=== PATIENT | female | born 1990 | race Caucasian/White ===

== ENCOUNTER 2016-05-19 15:32 | Outpatient (CLI) | payer OTHER ==
[~2016-05-19] VITALS: Ht 165.1 cm; Wt 95.0 kg
[~2016-05-19 15:32] MED LIST: PRENTAB9 PO
[2016-05-19 15:50] VITALS: BP 126/83
[2016-05-19] MEDS ORDERED: FLUCONAZOLE 50MG TABLET PO ONE (16:45)
[2016-05-19 17:27] VITALS: BP 136/81
--- NOTE | 2016-05-19 18:55 | IPNPDOC ---
Obstetrical Progress Note Date of Service The patient was seen on 05/19/16 at 18:27. Progress Note PROGRESS NOTE AND DISCHARGE SUBJECTIVE: Kelly is a 25-year-old female who is a at 34 weeks 4 days gestation with EDC of 06/26/2016 based on her LMP and consistent with a first trimester ultrasound. She initiated care in her first trimester with [facility]. Her has been complicated by a placental abruption at 30 weeks gestation. The placental abruption is now stable patient has had no more bleeding since 31 weeks. She presented to labor and delivery the ambulation after being seen at the office. She presented to the office for routine NST that was nonreactive. Patient experiencing low dull back pain and contractions. Reports active movement. Denies leaking of fluid or vaginal bleeding. Patient reports drinking plenty of fluid. Reports only eating a bowl of cereal today. Patient complaining of pelvic vaginal discharge and occasional vaginal itching. Allergies: No known drug allergies Current medications: vitamins Past medical history: Chickenpox OBJECTIVE: See vital signs below. heart rate baseline 130, moderate variability, positive accelerations, no decelerations. Contractions have spaced out. Contractions when patient arrived to labor and delivery were every 2-8 minutes and now are irregular and spaced out. PHYSICAL EXAMINATION: Respiratory: Lungs clear bilaterally Cardiovascular: Rate and rhythm are regular Abdomen: Gravid, mild to palpation with contraction : Thick white discharge noted at the introitus. Sterile speculum exam reveals a normal cervix. Thick adherent clumpy white discharge noted and adhered to the vaginal wall and all around the cervix. The discharge is copious. A wet prep obtained and found to have numerous yeast buds and pseudohyphae. The pH of the discharge is 4.5. Bilateral extremities: No edema present CURRENT LABS: Please see below. ASSESSMENT: IUP at 34 weeks 4 days gestation, vaginal candidiasis, category 1 heart rate tracing PLAN: Patient discharged to home with her significant other. Urine obtained for a UA and urine culture. Will call patient with culture results. Reviewed diagnosis of candidiasis/vaginal yeast infection. Diflucan by mouth given in the hospital. Patient reports that she does not feel her contractions anymore. Discharge education done on vaginal bleeding, labor signs and symptoms, kick count, and danger signs to report. She will continue her routine OB follow-up. VS, I&O, 24H, Fishbone VS, I&O, 24H, Fishbone Vital Signs Date Time Temp Pulse Resp B/P Pulse Ox O2 Delivery O2 Flow Rate FiO2 05/19/16 17:27 69 18 136/81 05/19/16 15:46 99.2 Laboratory Tests 2 05/19/16 16:44: Item Value Date Time Urine Color STRAW 05/19/16 1644 Urine Appearance CLEAR 05/19/16 1644 Urine pH 6.0 UNITS 05/19/16 1644 Urine Specific [place] 1.001 L 05/19/16 1644 Urine Protein NEGATIVE mg/dL 05/19/16 1644 Urine Glucose (UA) NEGATIVE mg/dL 05/19/16 1644 Urine Ketones NEGATIVE mg/dL 05/19/16 1644 Urine Blood NEGATIVE 05/19/16 1644 Urine Nitrite NEGATIVE 05/19/16 1644 Urine Bilirubin NEGATIVE 05/19/16 1644 Urine Urobilinogen 0.2 mg/dL 05/19/16 1644 Urine Leukocyte Esterase 3+ H 05/19/16 1644 Urine WBC (Auto) 2 /HPF 05/19/16 1644 Urine RBC (Auto) 3 /HPF 05/19/16 1644 Urine Hyaline Casts (Auto) 0 /LPF 05/19/16 1644 Urine Bacteria (Auto) 1+ H 05/19/16 1644 Urine Squamous Epithelial Cells 1 /HPF 05/19/16 1644 Microbiology 05/19/16 Urine Culture, Received Pending DAVID MCCALL CNM May 19, 2016 18:55
== END 2016-05-19 18:10 | disposition home or self-care (01) ==
LOC: M LDO 15:32
PROVIDERS: ATTEND Obstetrics & Gynecology
DX: O98.813 Other maternal infectious and parasitic diseases complicating pregnancy, third trimester (principal); Z3A.34 34 weeks gestation of pregnancy

== ENCOUNTER → 2016-05-23 | Outpatient (REF) | payer OTHER | END | disposition home or self-care (01) | LOC: M LAB REF 16:50 | PROVIDERS: ATTEND Obstetrics & Gynecology | DX: Z34.03 Encounter for supervision of normal first pregnancy, third trimester (principal); Z36 Encounter for antenatal screening of mother; Z3A.00 Weeks of gestation of pregnancy not specified ==

== ENCOUNTER 2016-06-10 07:49 | Inpatient (IN) | payer OTHER ==
[~2016-06-10] VITALS: Ht 165.1 cm; Wt 97.0 kg
[2016-06-10] VITALS (20 sets, daily range): BP systolic 113–139; BP diastolic 56–85
[2016-06-10] MEDS ORDERED: LACTATED RINGER'S 1000 ML IV STA (09:18)
[2016-06-10] MEDS ORDERED: PENICILLIN G POTASSIUM IV 5 MU in D5W MINI-BAG PLUS 100 ML IV STA (09:18)
[2016-06-10 09:56] LABS: MEAN CORPUSCULAR HGB CONC 32.6 g/dl (32.0-36.5); MEAN CORPUSCULAR VOLUME 79.7 fl (80.0-96.0); RED CELL DISTRIBUTION WIDTH 13.9 % (11.5-14.5); WHITE BLOOD COUNT 10.1 K/mm3 (4.0-10.0)
[2016-06-10] MEDS ORDERED: FENTANYL 2MCG/ML ROPIVACAINE 0.2% NACL 250 ML CADD As Ordered ONE (11:30)
--- NOTE | 2016-06-10 12:06 | HPEPDOC ---
Obstetrical History & Physical General Date of Admission Jun 10, 2016 at 09:16 History of Present Illness Patient is a 25-year-old female who is a at 37.4 weeks gestation with an of 06/26/2016 based off of her LMP and consistent with her first trimester ultrasound. She initiated care at [facility] in her first trimester, transferred care to Karon Vincent's office, and transferred back to [facility] in her third trimester. Patient's has been complicated by a placental abruption at 30 weeks gestation. She's been seen twice a week for OB care since 32 weeks' gestation for a stable placental abruption. Her last ultrasound on 05/18/2016 showed no abruption. She presents to labor and delivery with complaints of contractions every 3 minutes and spontaneous rupture of membranes. Patient reports fetus is active. Denies vaginal bleeding. Reports clear fluid and slight has rupture of membrane to be at 0830. 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 Surgical History: Denies Family History Significant Family History: No pertinent family hx, Cancer (maternal grandmother lung cancer and paternal granfather prostate cancer) Social History Social history Patient is a radiologist water filtration technician. She is with father of the baby. Marital Status: Single Psychosocial History: No pertinent psych hx * Smoker: non-smoker Alcohol: denies Drugs: denies Abuse Violence Screening Have you been hit/kicked/slapp: No Have you been sexually assault: No Imunizations Influenza Status: declined Allergies Coded Allergies: No Known Drug Allergy (Verified Allergy, Unknown, 06/10/16) Medications Miscellaneous Medications Multivitamins/ ( 27-0.8 mg) 1 Tab Tab 1 TAB PO Physical Examination Physical Examination GENERAL: Alert and oriented times three. BREAST: . ABDOMEN: Gravid and non-tender to touch. FETUS: Is vertex (VTX) by sterile vaginal examination (SVE), fetus is vertex ( VTX) by Franco. HEART RATE: Regular rate and rhythm. LUNGS: Clear to auscultation (CTA). EXTREMITIES: No edema. No clonus. Deep tendon reflexes (DTRs) + 2. Other physical findings Sterile speculum exam done. Moderate amount of clear fluid noted in the vaginal canal. Positive nitrazine. Small amount of bleeding noted with vaginal exam. Not noted with speculum exam. Vital Signs/I&O Blood pressure: 128/79, heart rate 89, respirations 18, temperature 97.7F Laboratory Data 24H LABS Laboratory Tests 2 06/10/16 09:18: Serology Scanned Report Hepatitis B Testing 06/10/16 09:43: CBC/BMP Laboratory Tests 06/10/16 09:43 Red Blood Count 4.29, Mean Corpuscular Volume 79.7 L, Mean Corpuscular Hemoglobin 26.0 L, Mean Corpuscular Hemoglobin Concent 32.6, Red Cell Distribution Width 13.9 Pertinent Laboratoy Data Blood Type: O+ RBC Antibody Screen: Negative HIV: Negative Hepatitis B: Negative Rapid Plasma Reagin: Immune Rubella: Immune Chlamydia/Gonorrhea: Negative Group B Streptococcus: Positive Quad Screen Test: Declined Anatomy Ultrasound Ultrasound Date: May 18, 2016 Placenta Location: Anterior Normal Anatomy: Yes Placenta Previa: No Estimated Weight (grams): 2308 (5lbs 1 oz, TIM 15.9) Steroid Therapy Steroid Therapy: Yes Date #1: Apr 21, 2016 Date #2: Apr 22, 2016 Reason active bleeding from placental abruption Vaginal Examination Dilation: 4 cm Effacement: Other (100%) Station: -1, 0 (0) Cervical Consistency: Soft Cervical Position: Anterior Presentation: Cephalic presentation Position: Vertex (occiput) Assessment Heart Rate (FHR): 140 Variability: Moderate Accelerations: Positive Decelerations: None Tocometer Contractions: Yes Frequency: other (1-3 minutes) Duration: other (50-90) Strength: palpated as mild Multi-drug resistant Organism: No history of MDRO Assessment/Plan Assessment IUP at 37 weeks 4 days gestation Active labor at term Spontaneous rupture of membranes History of placental abruption GBS positive Plan Patient admitted to labor and delivery. Saline lock per protocol. Labs ordered. GBS prophylaxis ordered and to be started as soon as possible. Regular diet. Out of bed as tolerated. Reviewed pain management options with patient. Plan of care reviewed with patient and family. Dr. Beaulieu present in the department with patient's admission. Anticipate cervical change. DAVID MCCALL CNM Jun 10, 2016 11:53
--- NOTE | 2016-06-10 12:23 | IPNPDOC ---
Obstetrical Progress Note Date of Service The patient was seen on 06/10/16 at 11:05. Progress Note Subjective: Patient out of bed and complaining of bright red vaginal bleeding. Objective: heart rate baseline 135, positive accelerations, no decelerations. Contractions every 1-3 minutes. Moderate amount of bright red bleeding noted. SVE: 5-6/100/0 station. Assessment: IUP at 37 weeks 4 days' gestation, Active labor, Category 1 heart rate tracing Plan: She desires epidural. Continue observation of vaginal bleeding. Anticipate cervical change and spontaneous vaginal delivery. DAVID MCCALL CNM Jun 10, 2016 12:23
[2016-06-10] MEDS ORDERED: REFRIGERATOR IV KEYS XX PRN (12:30)
[2016-06-10] MEDS ORDERED: EPIDURAL COMMENT XX SCH (12:30)
[2016-06-10] MEDS ORDERED: ePHEDrine SULFATE 25 MG/5 ML(5MG/ML) SYRINGE IV PRN (12:30)
[2016-06-10] MEDS ORDERED: NALOXONE INJ 0.4 MG/1 ML VIAL (J2310) IV PRN (12:30)
[2016-06-10] MEDS ORDERED: diphenhydrAMINE INJ 50MG/ML VIAL (J1200) IV PRN (12:30)
[2016-06-10] MEDS ORDERED: EPIDURAL/PCA KEYS XX PRN (12:30)
[2016-06-10] MEDS ORDERED: ONDANSETRON 4MG/2ML VIAL (J2405) IV PRN (12:30)
[2016-06-10] MEDS ORDERED: FENTANYL/ROPIVACAINE/NACL CADD 250 ML EPIDURAL SCH (12:30)
[2016-06-10] MEDS ORDERED: LACTATED RINGER'S 1000 ML IV PRN (12:30)
[2016-06-10] MEDS ORDERED: PENICILLIN G POTASSIUM IV 2.5 MU in D5W 100 ML IV SCH (14:00)
[2016-06-10] MEDS ORDERED: LR 1,000 ML IV SCH (14:57)
[2016-06-10] MEDS ORDERED: OXYTOCIN DRIP 30 UNITS in APPROPRIATE DILUENT 1 EA IV SCH ×2 (15:00→18:40)
[2016-06-10] MEDS ORDERED: OXYTOCIN 30 UNITS IN 0.9% NaCl 500ML IV BAG (J2590) As Ordered ONE (15:07)
--- NOTE | 2016-06-10 15:21 | IPNPDOC ---
Obstetrical Progress Note Date of Service The patient was seen on 06/10/16 at 1445. Progress Note Subjective: Patient is comfortable with epidural. Patient reports she has not experienced any more bleeding. Objective: heart rate baseline 150, moderate variability, 10 x 10 accelerations, no decelerations. Contractions 3-6 minutes. Vital signs: Blood pressure 125/62, heart rate 61. Assessment: Intrauterine at 37 weeks 4 days gestation, active labor at term, spontaneous rupture of membranes, category 1 heart rate tracing. Plan: Pitocin ordered. Dr. Beaulieu aware of plan. To space her cervical change and spontaneous vaginal delivery. DAVID MCCALL CNM Jun 10, 2016 15:21
[2016-06-10] MEDS ORDERED: METHYLERGONOVINE MALEATE 0.2 MG TAB PO PRN (18:45)
[2016-06-10] MEDS ORDERED: DOCUSATE SODIUM 100 MG CAP PO PRN (18:45)
[2016-06-10] MEDS ORDERED: DIBUCAINE 1% OINTMENT 30GM TOP PRN (18:45)
[2016-06-10] MEDS ORDERED: RHOGAM 300 MCG (1500 IU) INJ (J2790) IM SCH (18:45)
[2016-06-10] MEDS ORDERED: ANUSOL HC CREAM 30GM TOP PRN (18:45)
[2016-06-10] MEDS ORDERED: ACETAMINOPHEN 500 MG TAB PO PRN (18:45)
[2016-06-10] MEDS ORDERED: MEASLES,MUMPS,RUBELLA VACCINE INJ (MMR-II) (90707) SC SCH (18:45)
--- NOTE | 2016-06-10 18:57 | DNPDOC ---
Delivery Note Delivery Note Patient is a a 25-year-old now G 1 P 1001 at to 7.4 weeks' gestation who presented to labor and delivery in active labor and spontaneous rupture of membranes. She progressed to fully dilated at 1610. Patient pushed to a spontaneous vaginal delivery at 1650 to a living female in the OA position with restitution to ROT. Nuchal cord 1 tight and around arm. Shoulders delivered with ease and the corpus immediately followed. Baby placed on maternal abdomen active and crying. Cord clamped 2 and cut by father of the baby after pulsation ceased. Cord blood obtained. Spontaneous delivery of intact placenta with a three-vessel cord by Estrada mechanism at 1655. Placenta sent to the lab. Uterine hemostasis achieved by rapid infusion of IV Pitocin and uterine fundal massage. Perineum and vagina inspected and found to have a second-degree perineal laceration, left sulcus tear, and bilateral labial lacerations. Dr. Daily assisted in the sulcus repair. Repair was done with a 3. 0 Vicryl Rapide CT1 and a 4. Point 0 Vicryl Rapide SH. EBL 450. 's 8/9. Weight 6 lbs. 5 oz, 2866 g. 's name and decided at this time and is breast- feeding. Mom and baby are stable. Dr. Beaulieu aware of delivery. DAVID MCCALL CNM Jun 10, 2016 18:57
[2016-06-10] MEDS: IBUPROFEN 800 MG TAB PO PRN ×2 (20:52→20:54)
[2016-06-11 05:30] VITALS: BP 109/58
[2016-06-11] MEDS: PRENATAL VITAMIN TAB PO SCH (09:20)
[2016-06-11] MEDS: IBUPROFEN 800 MG TAB PO PRN ×2 (09:20→18:35)
[2016-06-11 18:35] VITALS: BP 136/84
[2016-06-12] MEDS: IBUPROFEN 800 MG TAB PO PRN ×2 (05:18→14:14)
[2016-06-12 06:05] VITALS: BP 130/77
[2016-06-12] MEDS: PRENATAL VITAMIN TAB PO SCH (09:00)
[2016-06-12] MEDS ORDERED: ACET500T37 PO (10:28)
[2016-06-12] MEDS ORDERED: MOTR200T44 PO (10:28)
[2016-06-12] MEDS ORDERED: COLA100C PO (10:29)
== END 2016-06-12 14:10 | disposition home or self-care (01) | DRG 775 ==
LOC: M LDO 07:49 → M LDI 09:16 → M OBS 20:20
PROVIDERS: ADMIT Obstetrics & Gynecology; ATTEND Obstetrics & Gynecology
PROC: 10E0XZZ Delivery of Products of Conception, External Approach (ICD-10-PCS; principal; 2016-06-10)
PROC: 0KQM0ZZ Repair Perineum Muscle, Open Approach (ICD-10-PCS; 2016-06-10)
PROC: 0HQ9XZZ Repair Perineum Skin, External Approach (ICD-10-PCS; 2016-06-10)
DX: O99.824 Streptococcus B carrier state complicating childbirth (principal); Z3A.37 37 weeks gestation of pregnancy; O70.1 Second degree perineal laceration during delivery; O69.2XX0 Labor and delivery complicated by other cord entanglement, with compression, not applicable or unspecified; O70.0 First degree perineal laceration during delivery; Z37.0 Single live birth

== ENCOUNTER → 2016-11-21 | Outpatient (REF) | payer OTHER ==
[~2016-11-21] MED LIST changes: +ACET-683 PO; +COLA100C5 PO; +MOTR200T44 PO
[2016-11-21 19:53] LABS: FREE T4 0.78 NG/DL (0.76-1.46)
== END ==
LOC: M LAB REF 16:52
PROVIDERS: ATTEND Advanced Practice Midwife
DX: Z01.419 Encounter for gynecological examination (general) (routine) without abnormal findings (principal)

== ENCOUNTER → 2018-12-05 | Outpatient (REF) | payer BC | LOC: M LAB REF 16:57 | PROVIDERS: ATTEND Advanced Practice Midwife | DX: Z34.81 Encounter for supervision of other normal pregnancy, first trimester (principal) ==

== ENCOUNTER → 2018-12-20 | Outpatient (REF) | payer BC | LOC: M LAB REF 13:56 | PROVIDERS: ATTEND Physician Assistant | DX: J02.9 Acute pharyngitis, unspecified (principal) ==

== ENCOUNTER → 2019-02-14 | Outpatient (REF) | payer BC | LOC: M LAB REF 12:52 | PROVIDERS: ATTEND Advanced Practice Midwife | DX: Z34.82 Encounter for supervision of other normal pregnancy, second trimester (principal); R39.15 Urgency of urination; Z3A.00 Weeks of gestation of pregnancy not specified ==

== ENCOUNTER → 2019-06-06 | Outpatient (REF) | payer BC | LOC: M SFHCWAGY 13:07 | PROVIDERS: ATTEND Advanced Practice Midwife | DX: Z34.83 Encounter for supervision of other normal pregnancy, third trimester (principal) ==

== ENCOUNTER 2019-07-05 09:04 | Inpatient (IN) | payer BC ==
[2019-07-05] VITALS (20 sets, daily range): BP systolic 78–140; BP diastolic 45–75
[~2019-07-05] VITALS: Ht 165.1 cm; Wt 107.1 kg
[2019-07-05] MEDS ORDERED: LACTATED RINGER'S 1000 ML IV STA (09:31)
[2019-07-05] MEDS ORDERED: LR 1,000 ML IV SCH ×2 (10:00→14:42)
[2019-07-05 10:11] LABS: HEMATOCRIT 33.9 % (36.0-47.0); HEMOGLOBIN 10.8 g/dl (12.0-15.5); MEAN CORPUSCULAR HEMOGLOBIN 24.2 pg (27.0-33.0); MEAN CORPUSCULAR HGB CONC 31.9 g/dl (32.0-36.5); PLATELET COUNT, AUTOMATED 164 10^3/uL (150-450); RED BLOOD COUNT 4.46 10^6/uL (4.00-5.40)
[2019-07-05] MEDS ORDERED: FENTANYL 2MCG/ML ROPIVACAINE 0.2% IN 0.9% NACL 100ML IVBAG As Ordered ONE (11:15)
[2019-07-05] MEDS: ePHEDrine SULFATE 25 MG/5 ML(5MG/ML) SYRINGE IV PRN ×3 (12:11→12:22)
[2019-07-05] MEDS ORDERED: REFRIGERATOR IV KEYS XX PRN (12:15)
[2019-07-05] MEDS ORDERED: NALOXONE INJ 0.4 MG/1 ML VIAL (J2310) IV PRN (12:15)
[2019-07-05] MEDS ORDERED: LACTATED RINGER'S 1000 ML IV PRN (12:15)
[2019-07-05] MEDS ORDERED: EPIDURAL COMMENT XX SCH (12:15)
[2019-07-05] MEDS ORDERED: EPIDURAL/PCA KEYS XX PRN (12:15)
[2019-07-05] MEDS ORDERED: diphenhydrAMINE INJ 50MG/ML VIAL (J1200) IV PRN (12:15)
[2019-07-05] MEDS ORDERED: ONDANSETRON 4MG/2ML VIAL (J2405) IV PRN ×2 (12:15→14:45)
[2019-07-05] MEDS ORDERED: FENTANYL/ROPIVACAINE/NACL BAG 100 ML EPIDURAL SCH (12:15)
[2019-07-05] MEDS ORDERED: OXYTOCIN 30 UNITS IN 0.9% NaCl 500ML IV BAG (J2590) As Ordered ONE (13:53)
[2019-07-05] MEDS ORDERED: OXYTOCIN DRIP 30 UNITS in IV 1 EA IV SCH (14:42)
[2019-07-05] MEDS ORDERED: RHOGAM 300 MCG (1500 IU) INJ (J2790) IM SCH (14:45)
[2019-07-05] MEDS ORDERED: ACETAMINOPHEN TAB 650MG DOSE (2X325MG) PO PRN (14:45)
[2019-07-05] MEDS ORDERED: PROMETHAZINE 25 MG TAB PO PRN (14:45)
[2019-07-05] MEDS ORDERED: IBUPROFEN 600 MG TAB PO PRN (14:45)
[2019-07-05] MEDS ORDERED: DOCUSATE SODIUM 100 MG CAP PO PRN (14:45)
[2019-07-05] MEDS ORDERED: MEASLES,MUMPS,RUBELLA VACCINE INJ (MMR-II) (90707) SC SCH (14:45)
[2019-07-05] MEDS ORDERED: DIBUCAINE 1% OINTMENT 30GM TOP PRN (14:45)
[2019-07-05] MEDS ORDERED: ACETAMINOPHEN 500 MG TAB PO PRN (14:45)
[2019-07-05] MEDS: IBUPROFEN 800 MG TAB PO PRN (17:47)
[2019-07-06] MEDS: IBUPROFEN 800 MG TAB PO PRN (04:18)
[2019-07-06 06:00] VITALS: BP 133/65
[2019-07-06] MEDS ORDERED: PRENATAL VITAMINS CHEWABLE TABLET PO SCH (09:00)
[2019-07-06] MEDS ORDERED: IBUP-1022 PO (10:03)
== END 2019-07-06 14:45 | disposition home or self-care (01) | DRG 560 ==
LOC: M LDO 09:04 → M LDI 09:28 → M OBS 16:00
PROVIDERS: ADMIT Obstetrics & Gynecology; ATTEND Obstetrics & Gynecology
PROC: 10E0XZZ Delivery of Products of Conception, External Approach (ICD-10-PCS; principal; 2019-07-05)
PROC: 0KQM0ZZ Repair Perineum Muscle, Open Approach (ICD-10-PCS; 2019-07-05)
DX: O69.81X0 Labor and delivery complicated by cord around neck, without compression, not applicable or unspecified (principal); O70.1 Second degree perineal laceration during delivery; Z3A.40 40 weeks gestation of pregnancy; Z37.0 Single live birth

== ENCOUNTER → 2020-09-08 | Outpatient (REF) | payer BC ==
[~2020-09-08] MED LIST changes: +IBUP-1022 PO
== END ==
LOC: M SFHCWAGY 10:35
PROVIDERS: ATTEND Advanced Practice Midwife
DX: Z01.419 Encounter for gynecological examination (general) (routine) without abnormal findings (principal); Z12.4 Encounter for screening for malignant neoplasm of cervix

== ENCOUNTER → 2022-12-12 | Outpatient (CLI) | payer BC | LOC: M WHC 12:26 | PROVIDERS: ATTEND Obstetrics & Gynecology | DX: Z12.31 Encounter for screening mammogram for malignant neoplasm of breast (principal); N63.11 Unspecified lump in the right breast, upper outer quadrant; N64.4 Mastodynia | CPT/HCPCS: 76642; 77066; G0279 ==

== ENCOUNTER → 2023-09-06 | Outpatient (CLI) | payer BC, SELFPAY ==
[2023-09-06 14:14] LABS: HEMATOCRIT 39.5 % (36.0-47.0); HEMOGLOBIN 13.4 g/dl (12.0-15.5); MEAN CORPUSCULAR HEMOGLOBIN 27.6 pg (27.0-33.0); MEAN CORPUSCULAR HGB CONC 33.9 g/dl (32.0-36.5); MEAN CORPUSCULAR VOLUME 81.4 fl (80.0-96.0); PLATELET COUNT, AUTOMATED 183 10^3/uL (150-450); RED BLOOD COUNT 4.85 10^6/uL (4.00-5.40); WHITE BLOOD COUNT 6.3 10^3/uL (4.0-10.0)
[2023-09-06 15:05] LABS: HIV 1&2 SCREEN NEGATIVE (NEGATIVE)
[2023-09-06 15:13] LABS: HEPATITIS C VIRUS ABY INDEX < 0.02 INDEX (<0.8)
[2023-09-06 16:03] LABS: GC DNA AMPLIFICATION NEGATIVE (NEGATIVE)
== END ==
LOC: M PLALAB 10:40
PROVIDERS: ATTEND Advanced Practice Midwife
DX: Z34.81 Encounter for supervision of other normal pregnancy, first trimester (principal)

== ENCOUNTER → 2023-09-13 | Outpatient (CLI) | payer BC | LOC: M WHC 12:47 | PROVIDERS: ATTEND Advanced Practice Midwife | DX: O20.9 Hemorrhage in early pregnancy, unspecified (principal) ==

== ENCOUNTER → 2023-11-09 | Outpatient (CLI) | payer BC | LOC: M RAD 09:33 | PROVIDERS: ATTEND Advanced Practice Midwife | DX: Z34.82 Encounter for supervision of other normal pregnancy, second trimester (principal) ==

== ENCOUNTER → 2024-01-08 | Outpatient (CLI) | payer BC ==
[2024-01-08 15:47] LABS: GLUCOSE CHALLENGE TEST 1 HOUR 129 MG/DL (LESS THAN 140)
[2024-01-08 15:51] LABS: HEMATOCRIT 35.6 % (36.0-47.0); HEMOGLOBIN 11.8 g/dl (12.0-15.5); MEAN CORPUSCULAR HEMOGLOBIN 28.1 pg (27.0-33.0); MEAN CORPUSCULAR HGB CONC 33.1 g/dl (32.0-36.5); MEAN CORPUSCULAR VOLUME 84.8 fl (80.0-96.0); PLATELET COUNT, AUTOMATED 155 10^3/uL (150-450); WHITE BLOOD COUNT 7.7 10^3/uL (4.0-10.0)
[2024-01-08 16:22] LABS: HIV 1&2 SCREEN NEGATIVE (NEGATIVE)
[2024-01-08 16:30] LABS: HEPATITIS C VIRUS ABY INDEX < 0.02 INDEX (<0.8)
[2024-01-08 16:55] LABS: GC DNA AMPLIFICATION NEGATIVE (NEGATIVE)
== END ==
LOC: M PLALAB 11:26
PROVIDERS: ATTEND Advanced Practice Midwife
DX: Z34.82 Encounter for supervision of other normal pregnancy, second trimester (principal)

== ENCOUNTER → 2024-03-06 | Outpatient (CLI) | payer BC ==
[2024-03-06 15:33] LABS: ALBUMIN 2.7 G/DL (3.2-5.2); ALKALINE PHOSPHATASE 113 U/L (35-104); ALT/SGPT 17 U/L (7.0-40); AST/SGOT 17 U/L (<34); BILIRUBIN,TOTAL 0.3 MG/DL (0.3-1.2); BLOOD UREA NITROGEN 10 MG/DL (9-23); CALCIUM LEVEL 8.8 MG/DL (8.5-10.1); CARBON DIOXIDE LEVEL 23 MMOL/L (20-31); CHLORIDE LEVEL 107 MMOL/L (98-107); CREATININE FOR GFR 0.59 MG/DL (0.55-1.30); GLOMERULAR FILTRATION RATE > 60.0 (>60); GLUCOSE, FASTING 73 MG/DL (60-100); IRON (FE) 40 UG/DL (50-170); SODIUM LEVEL 137 MMOL/L (136-145); TOTAL PROTEIN 6.3 G/DL (5.7-8.2)
[2024-03-06 15:35] LABS: FERRITIN 5.7 NG/ML (7.3-270.7)
== END ==
LOC: M PLALAB 13:31
PROVIDERS: ATTEND Advanced Practice Midwife
DX: R00.2 Palpitations (principal); Z3A.36 36 weeks gestation of pregnancy

== ENCOUNTER 2024-03-12 12:48 | Outpatient (CLI) | payer BC ==
[~2024-03-12] VITALS: Ht 165.1 cm; Wt 110.0 kg
[~2024-03-12 12:48] MED LIST changes: +ALBUTEROL SULFATE 2.5MG/0.5ML INH NEB SOLN INH PRN; +EPINEPHrine INJ 1 MG/ML 1ML AMP IM PRN; +diphenhydrAMINE 50MG/ML VIAL IV PRN; +methylPREDNISolone 125MG 2ML VIAL IV PRN
[2024-03-12 12:55] VITALS: BP 142/63; O2SAT 100
[2024-03-12] MEDS ORDERED: NS 1,000 ML IV SCH (13:00)
[2024-03-12] MEDS: FERRIC CARBOXYMALTOSE 750 MG (VIAL MATE) IN 100ML NS IV ONE (13:16)
[2024-03-12 14:25] VITALS: BP 123/59; O2SAT 98
== END 2024-03-12 14:30 ==
LOC: M INFU 12:48
PROVIDERS: ATTEND Advanced Practice Midwife
DX: D50.9 Iron deficiency anemia, unspecified (principal); Z91.09 Other allergy status, other than to drugs and biological substances
CPT/HCPCS: 96365; J1439

== ENCOUNTER 2024-03-19 12:35 | Outpatient (CLI) | payer BC ==
[~2024-03-19] VITALS: Ht 165.1 cm; Wt 113.6 kg
[2024-03-19] MEDS: FERRIC CARBOXYMALTOSE 750 MG (VIAL MATE) IN 100ML NS IV ONE (12:53)
[2024-03-19 13:00] VITALS: BP 118/69; O2SAT 96
[2024-03-19] MEDS ORDERED: NS 1,000 ML IV SCH (13:00)
[2024-03-19 13:25] VITALS: BP 106/69; O2SAT 97
== END 2024-03-19 13:25 | disposition home or self-care (01) ==
LOC: M INFU 12:35
PROVIDERS: ATTEND Advanced Practice Midwife
DX: D50.9 Iron deficiency anemia, unspecified (principal); Z91.09 Other allergy status, other than to drugs and biological substances
CPT/HCPCS: 96365; J1439

== ENCOUNTER 2024-04-01 15:05 | Inpatient (IN) | payer BC ==
[~2024-04-01] VITALS: Ht 165.1 cm; Wt 116.9 kg
[2024-04-01] VITALS (19 sets, daily range): BP systolic 100–161; BP diastolic 51–105; O2SAT 96
[~2024-04-01 15:05] MED LIST changes: -ALBUTEROL SULFATE 2.5MG/0.5ML INH NEB SOLN INH PRN; -EPINEPHrine INJ 1 MG/ML 1ML AMP IM PRN; -diphenhydrAMINE 50MG/ML VIAL IV PRN; -methylPREDNISolone 125MG 2ML VIAL IV PRN
[2024-04-01] MEDS ORDERED: LIDOCAINE 1% MDV 20ML VIAL INFIL PRN (15:30)
[2024-04-01] MEDS ORDERED: OXYTOCIN INJ 10UNITS/ML 1ML VIAL IM PRN (15:30)
[2024-04-01] MEDS ORDERED: METHYLERGONOVINE MALEATE 0.2MG/ML 1ML VIAL IM PRN (15:30)
[2024-04-01] MEDS ORDERED: TRANEXAMIC ACID INJection 1,000 MG in NS 100 ML IV PRN (15:30)
[2024-04-01] MEDS ORDERED: CARBOPROST TROMETHAMINE 250 MCG/ML AMP IM PRN (15:30)
[2024-04-01] MEDS ORDERED: HOME MED LIST COMPLETE! XX SCH (15:50)
[2024-04-01 16:03] LABS: HEMATOCRIT 39.7 % (36.0-47.0); HEMOGLOBIN 13.1 g/dl (12.0-15.5); MEAN CORPUSCULAR HEMOGLOBIN 26.7 pg (27.0-33.0); PLATELET COUNT, AUTOMATED 126 10^3/uL (150-450); WHITE BLOOD COUNT 9.8 10^3/uL (4.0-10.0)
[2024-04-01] MEDS ORDERED: NALOXONE INJ 0.4MG/1ML VIAL IV PRN (16:10)
[2024-04-01] MEDS ORDERED: diphenhydrAMINE 50MG/ML VIAL IV PRN (16:10)
[2024-04-01] MEDS ORDERED: ONDANSETRON 4MG 2ML VIAL IV PRN (16:10)
[2024-04-01] MEDS ORDERED: ePHEDrine SULFATE 25 MG/5 ML(5MG/ML) SYRINGE IVP PRN (16:10)
[2024-04-01] MEDS ORDERED: LR 500 ML IV PRN (16:10)
[2024-04-01] MEDS ORDERED: EPIDURAL/PCA KEYS XX PRN (16:10)
[2024-04-01] MEDS: LACTATED RINGER'S 1000 ML IV STA (16:47)
[2024-04-01] MEDS: LR 1,000 ML IV SCH (16:50)
[2024-04-01 17:12] LABS: HEPATITIS C VIRUS ABY INDEX 0.17 INDEX (<0.8)
[2024-04-01] MEDS: OXYTOCIN DRIP 30 UNITS in IV 1 EA IV PRN (17:26)
[2024-04-01 17:36] LABS: CORD GAS ABE V -6.9; CORD GAS HCO3 V 22.3 MMOL/L; CORD GAS O2 SAT V 43.5 %; CORD GAS PCO2 V 58.6 mmHg; CORD GAS PH V 7.198 UNITS; CORD GAS PO2 V 21.8 mmHg; CORD GAS SBC V 17.6 MMOL/L; CORD GAS TCO2 V 24.1 MMOL/L
[2024-04-01 17:38] LABS: CORD GAS HCO3 A 20.6 MMOL/L; CORD GAS O2 SAT A 38.9 %; CORD GAS PCO2 A 69.7 mmHg; CORD GAS PH A 7.088 UNITS; CORD GAS PO2 A 22.6 mmHg; CORD GAS SBC A 14.8 MMOL/L; CORD GAS TCO2 A 22.7 MMOL/L
[2024-04-01] MEDS: FENTANYL/ROPIVACAINE/NACL BAG 100 ML EPIDURAL SCH (17:43)
[2024-04-01] MEDS ORDERED: ANUSOL HC CREAM 30GM TOP PRN (18:10)
[2024-04-01] MEDS ORDERED: DIBUCAINE 1% OINTMENT 30GM TOP PRN (18:10)
[2024-04-01] MEDS ORDERED: DOCUSATE SODIUM 100MG CAPSULE PO PRN (18:10)
[2024-04-01] MEDS ORDERED: ACETAMINOPHEN 325 MG TAB PO PRN (18:10)
[2024-04-01] MEDS ORDERED: MOM 30ML SUSPENSION UDC PO PRN (18:10)
[2024-04-01] MEDS ORDERED: RHOGAM 300MCG (1500IU) INJ IM SCH (18:10)
[2024-04-01] MEDS: ACETAMINOPHEN 500 MG TAB PO PRN (21:55)
[2024-04-02 06:00] VITALS: BP 122/59; O2SAT 96
[2024-04-02] MEDS: PRENATAL VITAMINS CHEWABLE TABLET PO SCH (08:10)
[2024-04-02] MEDS: IBUPROFEN 800 MG TAB PO PRN (08:10)
[2024-04-02 17:52] VITALS: BP 124/74; O2SAT 97
[2024-04-03] MEDS: IBUPROFEN 600MG TAB PO PRN (02:10)
[2024-04-03 06:00] VITALS: BP 106/61; O2SAT 98
[2024-04-03] MEDS ORDERED: MEASLES,MUMPS,RUBELLA VACCINE INJ (MMR-II) SC.IMMUN ONE (09:00)
[2024-04-03] MEDS ORDERED: ACET-683 PO (09:54)
[2024-04-03] MEDS ORDERED: IBUP80TA PO (09:54)
== END 2024-04-03 14:40 | disposition home or self-care (01) | DRG 560 ==
LOC: M LDO 15:05 → M LDI 16:04 → M OBS 22:01
PROVIDERS: ADMIT Advanced Practice Midwife; ATTEND Advanced Practice Midwife
PROC: 10E0XZZ Delivery of Products of Conception, External Approach (ICD-10-PCS; principal; 2024-04-01)
PROC: 0W8NXZZ Division of Female Perineum, External Approach (ICD-10-PCS; 2024-04-01)
PROC: 0HQ9XZZ Repair Perineum Skin, External Approach (ICD-10-PCS; 2024-04-01)
DX: O69.81X0 Labor and delivery complicated by cord around neck, without compression, not applicable or unspecified (principal); O76 Abnormality in fetal heart rate and rhythm complicating labor and delivery; Z3A.40 40 weeks gestation of pregnancy; Z37.0 Single live birth; O70.0 First degree perineal laceration during delivery